=== PATIENT | male | born 1965 | race Caucasian/White ===

== ENCOUNTER → 2024-04-09 10:02 | Outpatient (REF) | payer OTHER, SELFPAY | LOC: RCS 10:02 | PROVIDERS: ATTENDING PHYSICIAN Nurse Practitioner Gerontology; FAMILY PHYSICIAN Internal Medicine | DX: I77.810 Thoracic aortic ectasia (principal) | CPT/HCPCS: 93306 ==

== ENCOUNTER → 2024-04-23 10:34 | Outpatient (REF) | payer OTHER, SELFPAY | LOC: RCS 10:34 | PROVIDERS: ATTENDING PHYSICIAN Nurse Practitioner Gerontology; FAMILY PHYSICIAN Internal Medicine | DX: R07.89 Other chest pain (principal); I77.810 Thoracic aortic ectasia; R06.09 Other forms of dyspnea; R01.1 Cardiac murmur, unspecified | CPT/HCPCS: 93017 ==

== ENCOUNTER 2024-12-08 17:11 | Inpatient (IN) | payer OTHER, SELFPAY ==
[2024-12-08 15:54] VITALS: BP 103/70
[2024-12-08 16:08] VITALS: BP 121/72
[2024-12-08 16:14] VITALS: BMI 28.3
[2024-12-08 16:17] LABS: % Basophils 0.3 % (0-2); % Eosinophils 0.1 % (0-6); % Immature Granulocytes 0.5 % (0-0.5); % Lymphocytes 8.8 % (20.5-51.1); % Monocytes 6.2 % (1.7-9.3); % Neutrophils 84.1 % (42.2-75.2); Absolute Basophils 0.1 10^3/uL (0-0.2); Absolute Immature Granulocytes 0.1 10^3/uL (0-0.05); Absolute Lymphocytes 1.4 10^3/uL (1.2-3.4); Hematocrit 44.7 % (39.0-52.0); Mean Corp Hgb Conc. 35.8 g/dL (33.0-37.0); Mean Corpuscular Hgb 30.9 pg (27.0-31.0); Mean Corpuscular Volume 86.5 fL (80.0-94.0); Nucleated Red Blood Cells % 0 % (-); Platelet Count 186 10^3/uL (130-400); Red Blood Cell Count 5.17 10^6/uL (4.70-6.10); Red Cell Dist. Width 12.4 % (11.5-14.5); White Blood Cell Count 15.4 10^3/uL (4.8-10.8)
[2024-12-08 16:19] LABS: Urine Albumin 3+ (Neg - Trace); Urine Bilirubin Negative (Negative); Urine Character Clear (Clear); Urine Color Yellow; Urine Glucose Negative (Negative); Urine Ketone Negative (Negative); Urine Leukocyte 3+ (Negative); Urine Nitrite Negative (Negative); Urine Occult Blood 4+ (Negative); Urine Specific Gravity 1.015 (<1.030); Urine Urobilinogen Negative (Neg - 1+)
--- NOTE | 2024-12-08 16:21 | ED.GENMED ---
History of Present Illness
General
Chief Complaint: Fever
Source: patient
Time Seen by Provider: 12/08/24 16:08
History of Present Illness
History of Present Illness:
Note:
CHIEF COMPLAINT(S)
Fever and dysuria.
HISTORY OF PRESENT ILLNESS
The patient is a 59-year-old male with a history of elevated cholesterol who presents with fever and urinary symptoms. He reports the onset of symptoms beginning yesterday, including fever, pain during urination, and urgency with small volume voids.
He describes needing to change his underwear frequently due to difficulty getting to the bathroom in time. He has no history of urinary tract infections as an adult. The patient denies testicular pain, urethral discharge, or any recent vomiting but
reports nausea. He has had a recent sexual encounter six days ago with a male partner, involving unprotected anal sex, and denies any concern for sexually transmitted infections. Viral loads are undetectable as he is compliant with his medication
regimen. He has some back pain, for which he has taken Vicodin, last taken two to three hours prior to this visit.
CHRONIC MEDICAL CONDITIONS SIGNIFICANTLY AFFECTING CARE
Hyperlipidemia managed with medication. HIV with undetectable viral load due to compliance with antiretroviral therapy.
SOCIAL HISTORY
The patient reports no current use of tobacco or alcohol, having ceased alcohol consumption 12 years ago.
REVIEW OF SYSTEMS
- Constitutional: Fever present.
- Genitourinary: Dysuria, urgency, increased frequency. No testicular pain or urethral discharge.
- Gastrointestinal: Nausea, no vomiting reported.
- Others: Back pain noted.
Past History
Past History
ED Past Medical History: HTN, Hypercholesterolemia, Other (HIV) and Other (Chronic low back pain)
ED Past Surgical History: Orthopedic
Social History
Tobacco: Former smoker
Alcohol: Former
Drug: None
Personal: Single
Living: alone
Employment: Employed
Review of Systems
Review of Systems
All Other Systems: ROS reviewed and negative except as documented in HPI and ROS
Phy Exam
Physical Exam
Physical Exam:
GENERAL: Alert , in no apparent distress
EYE: clear conjunctiva b/l
HEAD: NCAT
ENT: o/p clr, mmm.
CARDIAC: tachycardic rate, normal rhythm.
LUNGS: Clear breath sounds bilaterally, no acute respiratory distress, no wheezes/rales/rhonchi
ABDOMEN: Soft, without focal tenderness, no r/g, no cvat, negative Vo sign, no tenderness at McBurney's point
RECTAL EXAM: Deferred as patient just had this done by his primary care provider
NEUROLOGICAL: Alert and oriented
SKIN: Warm and dry, skin intact.
MUSCULOSKELETAL: well perfused.
PSYCH: Normal and appropriate interaction.
Scores
Heart Failure Risk
Heart Failure Risk Score: Not Applicable
Heart Score for Chest Pain Patients
STEMI patient?: Not applicable
Withdrawal Assessment of Alcohol
Withdrawal Assessment Completed?: Not applicable
Sepsis
Sepsis Screening
Sepsis Assessment: Sepsis
Sepsis Screen
Sepsis Screen: Sepsis
Date: 12/08/24
Time: 17:04
Course
Orders/Labs/Results
Orders:
Orders
12/08/24 16:05
Complete Blood Count/With Diff Urgent
Comprehensive Metabolic Panel Urgent
Lactic Acid Urgent
Urinalysis Reflex To Culture Urgent
Date Specimen was Collected: 12/08/24
Time Specimen was Collected: 16:01
Urine Microscopic Reflex Cult Urgent
Urine Culture Urgent
TALIB Source: U
Specimen Description:
Date Specimen was Collected: 12/08/24
Time Specimen was Collected: 16:01
12/08/24 16:08
Bladder Scan- Treatment ONCE
Acetaminophen [Tylenol] 650 mg PO NOW STA
12/08/24 16:15
Blood Culture Q30M
TALIB Source: Blood/Venous
Specimen Description:
12/08/24 16:17
0.9% Sodium Chloride 1000 ml [Nss] 2,800 ml IV NOW STA
Ondansetron Injectable [Zofran] 4 mg IV NOW STA
12/08/24 16:18
Electrocardiogram (*1) Urgent
Reason for Study: Tachycardia
EKG- Treatment ONCE
Cefepime HCl [Maxipime] 2,000 mg IV NOW STA
12/08/24 16:24
Add On- LAB Urgent
Tests Added?: gonorrhea/chalmydia PCR Urine
12/08/24 16:26
Sterile Water [Sterile Water For Injection] 10 ml .ROUTE .[facility]
12/08/24 16:45
Blood Culture Q30M
TALIB Source: Blood/Venous
Specimen Description:
12/08/24 16:56
Bladder Scan As Directed
Follow Bladder Retention/Intermittent Cath Algorithm?: Yes
PRN if no void in __ hours: 6
Frequency: Per Retention Algorithm
If Bladder Scan Result >: 400
then:: Straight cath
Straight Cath As Directed
Frequency: Per Retention Algorithm
Additional Instructions: straight cath as needed per acute urinary retention algorithm for 24 hrs
Additional Instructions: for bladder scan greater than 400 mL
Abnormal Lab Results
12/08/24
16:05
WBC 15.4 H 10^3/uL
(4.8-10.8)
Abs Immat Gran (auto) 0.1 H 10^3/uL
(0-0.05)
Absolute Neuts (auto) 13.0 H 10^3/uL
(1.4-6.5)
Absolute Monos (auto) 1.0 H 10^3/uL
(0.1-0.6)
Neutrophils % 84.1 H %
(42.2-75.2)
Lymphocytes % 8.8 L %
(20.5-51.1)
Glucose 134 H mg/dl
(70-99)
Ur Occult Blood Reflex 4+ A
(Negative)
Leukocyte Esterase Rfl 3+ A
(Negative)
Urine RBC 11-15 A /HPF
(0-2)
Urine WBC (Reflex) 30-40 A /HPF
(0-5)
Urine Bacteria (Reflex) Moderate A
(Negative)
Urine Albumin (Reflex) 3+ A
(Neg - Trace)
12/08/24 16:05
12/08/24 16:05
Vital Signs
Initial and Last Documented VS:
Initial Vital Signs
Temp Pulse Resp BP Pulse Ox
103.0 F H 158 16 103/70 95
12/08/24 15:54 12/08/24 15:54 12/08/24 15:54 12/08/24 15:54 12/08/24 15:54
Last Documented Vital Signs
Temp Pulse Resp BP Pulse Ox
103.0 F H 151 21 121/72 94
12/08/24 15:54 12/08/24 16:09 12/08/24 16:09 12/08/24 16:08 12/08/24 16:15
MDM/Problems Addressed
Differential Diagnosis Includes:
The Differential Diagnosis includes, in no particular order, and is not limited to:
1. Urinary Tract Infection
2. Acute Prostatitis
3. Pyelonephritis
4. Urolithiasis
5. Sexually Transmitted Infection
6. Bladder Infection
7. Epididymitis
8. Viral Infection
9. Fungal Infection
10. Non-infectious causes of dysuria, such as urinary tract obstruction.
MDM/Problems Addressed:
- Administer intravenous fluids.
- Administer Tylenol to reduce fever.
- Administer Zofran for nausea control.
- Collect a urine sample for further analysis.
- Plan for hospital admission for intravenous antibiotic therapy considering complicated urinary tract infection in a male patient.
Chronic conditions affecting care: Immunosuppressed (HIV)
*Pulse Oximetry
Patient hypoxic: no
*Project Lead Interpretation
Rate: tachycardiac
Rhythm: sinus
*Critical Care Note
Total Time (30-74mins, 75-104mins- exclusive of procedures): Not Applicable
Data Reviewed
Review of Other/Old Records Reveals: Labs
Patient Management
Discussion with other providers: Hospitalist
Escalation/DeEscalation of care consider admission/obs:
SUMMARY OF ENCOUNTER
The patient, a 59-year-old male with a background of hyperlipidemia and controlled HIV, presented with fever and symptoms of dysuria and urinary urgency. His symptoms began a day prior and included fever, pain during urination, and frequent trips to
the bathroom with small volume voids. He experienced nausea but denied any vomiting. He had a recent sexual encounter but reported no concern for sexually transmitted infections. Upon examination, the patient demonstrated a significant fever and
tachycardia.
Laboratory findings revealed significant leukocytosis and urine analysis showed three plus leukocytes and 30 to 40 WBCs. These findings, along with the patients symptoms, fever, and history, led to a suspicion of a complicated urinary tract
infection or prostatitis, exacerbated by his immunocompromised state despite controlled HIV.
Based on these findings and the risk factors, the decision was made to manage the patient with hospitalization for IV antibiotics, fluids, and continued monitoring.
MANAGEMENT OF THE PATIENTS CARE WAS DISCUSSED WITH
The hospitalist team, who accepted the patient for further treatment and evaluation.
MEDICAL DECISION MAKING
Number and Complexity of Problems Addressed:
The patient presented with fever and dysuria amidst an HIV-controlled condition, raising concern for a complicated UTI or prostatitis. The complexity of his state considering his immunocompromised background necessitated careful evaluation and
management approaches.
Data:
Laboratory test results including leukocytosis and urine analysis were pivotal in deciding the admission for IV antibiotics due to the suspected infection.
Risk:
The patients immunocompromised status due to HIV, though controlled, increased the risk for complications from the suspected UTI or prostatitis, requiring hospital admission for appropriate care.
ED Attending Note
-
Portions of this chart may have been created with voice recognition software.� Occasional wrong word or��sound alike� substitutions may have occurred due to the inherent limitations of voice recognition software.
Discharge Plan
Departure
Patient Disposition: Admit
Date of Disposition: 12/08/24
Time of Disposition: 16:44
Presentation/result/management discussed w/ accepting MD/DO: Hospitalist
Discharge Problem:
Urinary tract infection
Prescriptions:
No Action
atorvastatin [Lipitor] 20 mg Tablet
20 mg PO DAILY
tadalafil 20 mg Tablet
20 mg PO DAILYPRN PRN (Reason: ed)
Ozempic 2 mg/dose (8 mg/3 mL) Pen Injector
2 mg SC QWEEK
Interventions
Interventions:
*Risk Screen - Suicide Last Done: 12/08/24 16:15
*General Assessment Last Done: 12/08/24 16:15
*Neglect/Abuse Screening Last Done: 12/08/24 16:15
*ED- Fall Risk Assessment Last Done: 12/08/24 16:15
*ED COVID-19 Vaccine History Last Done: 12/08/24 16:15
ED- Neurological Assessment Last Done: 12/08/24 16:15
ED-Skin Assessment Last Done: 12/08/24 16:15
Discharge Date and Time
Print Language: PERSIAN
[2024-12-08] MEDS: NSS 2800 ML IV (16:24)
[2024-12-08 16:25] LABS: Urine Mucus Few; Urine Squamous Cell 0-2 /LPF (Few)
[2024-12-08 16:26] LABS: Urine Bacteria Moderate (Negative); Urine White Cell 30-40 /HPF (0-5)
[2024-12-08] MEDS: ZOFRAN 4 MG IV (16:28)
[2024-12-08] MEDS: TYLENOL 650 MG PO (16:28)
[2024-12-08] MEDS: MAXIPIME 2000 MG IV (16:29)
[2024-12-08 16:42] LABS: ALT (SGPT) 20 U/L (0-50); AST (SGOT) 22 U/L (17-59); Albumin 4.4 g/dl (3.5-5.0); Alkaline Phosphatase 53 U/L (38-126); Blood Urea Nitrogen 17 mg/dl (9-20); Calcium 9.3 mg/dl (8.4-10.2); Carbon Dioxide 27 mmol/L (22-30); Chloride 103 mmol/L (98-107); Estimated Creatinine Clearance 77 ml/min; Glucose 134 mg/dl (70-99); Potassium 3.9 mmol/L (3.5-5.1); Sodium 139 mmol/L (135-145); Total Bilirubin 1.1 mg/dl (0.2-1.3); eGFR > 60.00
--- NOTE | 2024-12-08 16:45 | HPS.HSE ---
Family Physician
-
Family Physician:
Chief Complaint
-
Urinary frequency, urgency
History of Present Illness
59-year-old male with a history of hyperlipidemia, prediabetes, HIV presented to us with fever of 103, urinary frequency urgency and painful urination since yesterday.patient complained if decreased urine output. Patient complained of headache and
dizzy. Patient was taking Tylenol and aspirin at home. The patient denies testicular pain, urethral discharge, or any recent vomiting but reports nausea.He has some back pain. Patient denied cough, congestion, chest pain, short of breath. Patient
denied abdominal pain, diarrhea or constipation.
UA positive. Initiated on IV cefepime. Admitting for further management
Medical History
Past Medical History
Past Medical History: Reports Other
Additional Past Medical History:
Aortic root enlargement, HIV, hyperlipidemia, ADHD
Past Surgical History: Reports Other
Additional Past Surgical History:
Spinal fusion
Eyelid surgery
Social History
Tobacco: Former Smoker
Alcohol: Former
Drug: Former User
Living: Alone
Employment: Employed
Family History
Family History: Not pertinent
Allergies / Home Medications
Allergies reflects when Allergies were last updated in [facility].
Home Medications with original date entered in [facility]
Allergy/Medication List:
Allergies
Allergy/AdvReac Type Severity Reaction Status Date / Time
cat dander Allergy Anaphylaxis Verified 12/08/24 15:57
Home Medications
atorvastatin 20 mg tablet (Lipitor) 20 mg PO DAILY 12/08/24
semaglutide 2 mg/dose (8 mg/3 mL) subcutaneous pen injector (Ozempic) 2 mg SC QWEEK 12/08/24
tadalafil 20 mg tablet 20 mg PO DAILYPRN PRN ed 12/08/24
Review of Systems
-
Constitutional: Reports Fever and Fatigue
EENT: Reports No Symptoms
Respiratory: Reports No Symptoms
Cardiac: Reports No Symptoms
Abdomen/GI: Reports No Symptoms
: Reports Dysuria, Frequency, Flank Pain, Difficulty Voiding and Urgency
Musculoskeletal: Reports No Symptoms
Skin: Reports No Symptoms
Neurological: Reports No Symptoms
Endocrine: Reports No Symptoms
Hematologic/Lymphatic: Reports No Symptoms
Psych: Reports No Symptoms
Physical Exam
Vital Signs
Vital Signs
Temp Pulse Resp BP Pulse Ox
103.0 F H 151 21 121/72 94
12/08/24 15:54 12/08/24 16:09 12/08/24 16:09 12/08/24 16:08 12/08/24 16:15
Physical Exam
General: Well Developed, Well Nourished and No Apparent Distress
HEENT: NormoCephalic, Moist mucous membranes and Atraumatic
Respiratory: Clear
Cardiac: S1/S2 and Regular Rhythm; No Murmur or Rub
GI: Soft, Non Tender, Non Distended and Normal Bowel Sounds; No Organomegaly
Rectal: Deferred by Provider
Musculoskeletal: No Clubbing, No Cyanosis and No Edema
Skin: No Rash
Neuro: AO x 3 and Nonfocal/grossly intact
Psych: Calm
Laboratory Results
-
12/08/24 16:05
12/08/24 16:05
Laboratory Results
Lactic Acid 1.0 mmol/L (0.7-2.0) 12/08/24 16:05
Total Bilirubin 1.1 mg/dl (0.2-1.3) 12/08/24 16:05
AST 22 U/L (17-59) 12/08/24 16:05
ALT 20 U/L (0-50) 12/08/24 16:05
Alkaline Phosphatase 53 U/L (38-126) 12/08/24 16:05
Data Reviewed
-
Lab Data: Labs Reviewed by me
Impression/Plan
-
# Sepsis secondary to prostatitis
# Complicated urinary tract infection
- IV Maxipime continued
- Tylenol as needed for fever or pain
- Sepsis as evident by WBCs 15.4, temp 103.0, tachycardia
# Hyperlipidemia
- Statin continued
# Prediabetes
- Hold Ozempic
- CHO diet
- Sliding scale
# History of HIV
-on cabenuva
#ADHD
-methylphenidate continued
# DVT prophylaxis
- Lovenox
# CODE STATUS
- Full code
[2024-12-08 17:00] VITALS: BP 121/73
--- NOTE | 2024-12-08 17:13 | W.PN.UPDATE ---
Update Note
Progress Note Update
This is an addendum to H&P written by AIRPLANE DISPATCH CLERK Padmini Vázquez
I saw and examined the patient.
The AIRPLANE DISPATCH CLERK's note was reviewed and I agree with the note.
Comment:
Mr. Bert Conti is a 59 yo man with hx HIV on ART, HLD, GERD presents to the ER with fevers, back pain and dysuria.
Triage VS: T 103, P 158, RR 16, BP 103/70, SpO2 95%
On exam patient is awake, alert, in no distress; Chest clear; CV: S1, S2, tachycardia; some right lower back tenderness; no LE swelling
LABS: WBC 15.4, Hg 16, PLT 186, Na 139, K+ 3.9, Cr 1.1, Glucose 134, lactate 1.0
UA with 30-40 WBC
MAR: sepsis dose fluid, IV Cefepime
Sepsis 2/2 UTI
-with report of low back/flank pain will obtain CT with/without contrast
-continue IV Cefepime
-IVF
-follow up blood and urine cultures
HIV
-continue ART
HLD
-RUBBER STAMP ASSEMBLER Statin
DVT PPx Lovenox
FULL CODE
Remainder of plan per AIRPLANE DISPATCH CLERK note
[2024-12-08 20:03] VITALS: BP 117/80; BMI 28.2
[2024-12-08] MEDS: NSS 1000 IV (20:22)
[2024-12-08] MEDS: NORCO 7.5/325 1.5 TABLET PO (20:23)
[2024-12-08] MEDS: LOVENOX 40 MG SC (20:23)
[2024-12-08] MEDS: RITALIN 20 MG PO (20:24)
[2024-12-08 21:41] LABS: Glucose - Point of Care 143 mg/dl (70-99)
[2024-12-08 23:06] VITALS: BP 116/68
[2024-12-09] MEDS: MAXIPIME 2000 MG IV ×4 (00:16→23:47)
[2024-12-09] MEDS: STERILE WATER FOR INJECTION 10 ML IV ×3 (00:17→16:59)
[2024-12-09 03:13] VITALS: BP 126/82
[2024-12-09 06:00] VITALS: BMI 28.1
[2024-12-09 06:34] LABS: Hemoglobin 14.4 g/dL (13.0-18.0); Mean Corpuscular Hgb 31.4 pg (27.0-31.0); Mean Corpuscular Volume 87.3 fL (80.0-94.0); Mean Platelet Volume 9.2 fL (7.4-10.4); Platelet Count 154 10^3/uL (130-400); Red Blood Cell Count 4.58 10^6/uL (4.70-6.10); Red Cell Dist. Width 12.7 % (11.5-14.5)
[2024-12-09 06:58] LABS: Blood Urea Nitrogen 12 mg/dl (9-20); Calcium 8.3 mg/dl (8.4-10.2); Carbon Dioxide 23 mmol/L (22-30); Chloride 110 mmol/L (98-107); Estimated Creatinine Clearance 95 ml/min; Glucose 118 mg/dl (70-99); Sodium 139 mmol/L (135-145); eGFR > 60.00
[2024-12-09] MEDS: NSS 1000 IV (07:01)
[2024-12-09 07:14] LABS: Glucose - Point of Care 105 mg/dl (70-99)
[2024-12-09 07:53] VITALS: BP 125/79
[2024-12-09] MEDS: PROTONIX 40 MG PO (08:29)
[2024-12-09] MEDS: NORCO 7.5/325 1.5 TABLET PO ×2 (08:29→20:17)
[2024-12-09] MEDS: VIBRAMYCIN 20 MG PO (08:29)
[2024-12-09] MEDS: RITALIN 20 MG PO (08:29)
[2024-12-09] MEDS: LIPITOR 20 MG PO (08:29)
--- NOTE | 2024-12-09 08:47 | W.PN.HOSP.TC ---
Today's Communication/Plan
-
see plan
Assessment / Plan
Assessment / Plan
Mr. Bert Conti is a 59 yo man with hx HIV on ART, HLD, GERD presents to the ER with fevers, back pain and dysuria, admitted for sepsis 2/[address] A/P
IMPRESSION:
1. No significant abnormality identified in the abdomen or pelvis, as described above.
MAR: sepsis dose fluid, IV Cefepime
Sepsis 2/2 UTI/Prostatitis - patient had prostate exam in clinic; reported significant tenderness
-CT A/P without e/o nephrolithiasis or pyelo
-continue IV Cefepime
-IVF
-follow up blood and urine cultures
HIV
-continue ART
HLD
-MOUNTAIN SERVICES MANAGER Statin
DVT PPx Lovenox
FULL CODE
Anticipated Discharge: 24 - 48 hours
Subjective/Interval History
-
Date of Service: December 09, 2024
feeling better today
some irritation with urination
Objective Data
-
Labs:
Laboratory Results
12/09/24
06:06
WBC 12.0 H
Hgb 14.4
Hct 40.0
Plt Count 154
Sodium 139
Potassium 4.0
Chloride 110 H
Carbon Dioxide 23
BUN 12
Creatinine 0.9
Glucose 118 H
Calcium 8.3 L
Vital Signs:
Vital Signs
Temp Pulse Resp BP Pulse Ox
98.9 F 108 14 125/79 95
12/09/24 07:53 12/09/24 07:53 12/09/24 07:53 12/09/24 07:53 12/09/24 07:53
I&O
12/08/24 12/09/24 12/10/24
06:59 06:59 06:59
Intake Total 480 / 480
Output Total 900 / 900
Balance -420 / -420
Review of Systems
-
History Source: Patient
All other systems: Reviewed and negative
Physical Exam
-
General: No Apparent Distress
HEENT: PERRLA
Respiratory: Clear to Auscultation; Negative Wheezes
Cardiac: Regular Rhythm and S1/S2
GI: Soft and Nontender
Musculoskeletal: No Edema
Skin: Warm and Dry; Negative Rash
Neuro: Awake, Alert, Oriented and AO x 3
Psych: Calm
Data Reviewed
-
Diagnostic Radiology: Report Reviewed by me
Labs: Labs Reviewed by me
[2024-12-09 09:00] LABS: Glycohemoglobin (HgbA1c) 5.8 % (4.0-5.6)
[2024-12-09 11:24] VITALS: BP 141/90
--- NOTE | 2024-12-09 11:38 | CM ---
CM following re: discharge planning.
Reviewed pt's chart, met with pt.
Pt is a 59 year old male, admitted with primary dx of Sepsis.
Pt reports he lives alone in a condo, no steps to enter, has a and she lives in a separate condo, no children. Pt described himself as independent in all areas [employer], drives, works.
PCP: Rolando Lucero
[facility]
D/C plan: home with anticipated no needs.
CM will follow with discharge plan updates as hospitalization progresses
[2024-12-09] MEDS: TUMS CHEWABLE TABLET 400 MG PO (12:00)
[2024-12-09 15:38] VITALS: BP 131/84
[2024-12-09] MEDS: NSS IV (16:17)
[2024-12-09] MEDS: LOVENOX SC ×2 (16:59→17:40)
[2024-12-09] MEDS: RITALIN PO (17:40)
[2024-12-09] MEDS: COLACE 100 MG PO (20:07)
[2024-12-09 20:10] VITALS: BP 137/86
[2024-12-09] MEDS: TYLENOL 500 MG PO (21:08)
[2024-12-09 23:06] VITALS: BP 140/116
[2024-12-10] MEDS: STERILE WATER FOR INJECTION 10 ML IV ×2 (00:12→08:36)
[2024-12-10 07:43] VITALS: BP 138/85
[2024-12-10 08:09] LABS: Hematocrit 40.7 % (39.0-52.0); Hemoglobin 14.3 g/dL (13.0-18.0); Mean Corp Hgb Conc. 35.1 g/dL (33.0-37.0); Mean Corpuscular Hgb 31.2 pg (27.0-31.0); Mean Corpuscular Volume 88.7 fL (80.0-94.0); Mean Platelet Volume 9.4 fL (7.4-10.4); Platelet Count 164 10^3/uL (130-400); Red Blood Cell Count 4.59 10^6/uL (4.70-6.10); Red Cell Dist. Width 12.8 % (11.5-14.5)
[2024-12-10] MEDS: VIBRAMYCIN 20 MG PO (08:34)
[2024-12-10] MEDS: PROTONIX 40 MG PO (08:35)
[2024-12-10] MEDS: COLACE 100 MG PO (08:35)
[2024-12-10] MEDS: NORCO 7.5/325 1.5 TABLET PO (08:35)
[2024-12-10] MEDS: RITALIN 20 MG PO (08:36)
[2024-12-10] MEDS: LIPITOR 20 MG PO (08:36)
[2024-12-10] MEDS: MAXIPIME 2000 MG IV (08:36)
[2024-12-10 09:07] LABS: Blood Urea Nitrogen 10 mg/dl (9-20); Calcium 8.7 mg/dl (8.4-10.2); Carbon Dioxide 26 mmol/L (22-30); Chloride 108 mmol/L (98-107); Estimated Creatinine Clearance 85 ml/min; Glucose 129 mg/dl (70-99); Potassium 4.1 mmol/L (3.5-5.1); Sodium 141 mmol/L (135-145); eGFR > 60.00
--- NOTE | 2024-12-10 09:08 | W.PN.HOSP.TC ---
Today's Communication/Plan
-
OK for DC today
Assessment / Plan
Assessment / Plan
Mr. Bert Conti is a 59 yo man with hx HIV on ART, HLD, GERD presents to the ER with fevers, back pain and dysuria, admitted for sepsis 2/2 UTI/prostatitis.
CT A/P
IMPRESSION:
1. No significant abnormality identified in the abdomen or pelvis, as described above.
Sepsis 2/2 UTI/Prostatitis - patient had prostate exam in clinic; reported significant tenderness
-CT A/P without e/o nephrolithiasis or pyelo
-culture growing E. Coli resistant to Bactrim
-s/p IV Cefepime - transition to Cipro to complete 2 week course
-*patient spiked a fever to 101 yesterday evening. We discussed watching another night in hospital to confirm afebrile x 24 hours versus home today. He is transitioned to Cipro which has excellent bioavailability. Patient would rather go home
today. He states he has support at home. He was given warning signs on when to come back to the OR.
HIV
-continue ART
HLD
-NURSING CLINICAL DIRECTOR Statin
DVT PPx Lovenox
FULL CODE
Anticipated Discharge: Today
Subjective/Interval History
-
Date of Service: December 10, 2024
feeling well
mild urinary urgency, much improved
denies pain
spiked fever to 101 yesterday evening
Objective Data
-
Labs:
Laboratory Results
12/10/24
06:47
WBC 9.0
Hgb 14.3
Hct 40.7
Plt Count 164
Sodium 141
Potassium 4.1
Chloride 108 H
Carbon Dioxide 26
BUN 10
Creatinine 1.0
Glucose 129 H
Calcium 8.7
Vital Signs:
Vital Signs
Temp Pulse Resp BP Pulse Ox
98.3 F 101 18 138/85 96
12/10/24 07:43 12/10/24 07:43 12/10/24 07:43 12/10/24 07:43 12/10/24 07:43
I&O
12/09/24 12/10/24 12/11/24
06:59 06:59 06:59
Intake Total 480 / 480 2440 / 2440
Output Total 900 / 900 1959 / 1959
Balance -420 / -420 480 / 480
Review of Systems
-
History Source: Patient
All other systems: Reviewed and negative
Physical Exam
-
General: No Apparent Distress
HEENT: PERRLA
Respiratory: Clear to Auscultation; Negative Wheezes
Cardiac: Regular Rhythm and S1/S2
GI: Soft and Nontender
Musculoskeletal: No Edema
Skin: Warm and Dry; Negative Rash
Neuro: Awake, Alert, Oriented and AO x 3
Psych: Calm
Data Reviewed
-
Diagnostic Radiology: Report Reviewed by me
Labs: Labs Reviewed by me
--- NOTE | 2024-12-10 09:43 | W.DS.TRANS ---
DC Summary - Field Placement Director
-
Discharge Instructions:
Discharge Diagnosis/Procedures Acute Prostatitis
Diet Regular
Activity As tolerated
Driving Restrictions As prior to admission
Bathing Restrictions None
Instructions:
Stand-Alone Forms:
Changes to Home Medications: Yes
Discharge Medications:
DC Medications w/original date entered in [facility]
ascorbic acid (vitamin C) 500 mg tablet (Vitamin C) 500 mg PO DAILY 12/08/24
atorvastatin 20 mg tablet (Lipitor) 20 mg PO DAILY 12/08/24
cabotegravir ER 600 mg/3 mL-rilpivirine ER 900 mg/3mL IM suspension,ER (Cabenuva) 0 ml IM .COMPLEX 12/08/24
cholecalciferol (vitamin D3) 50 mcg (2,000 unit) capsule (Vitamin D3) 50 mcg PO DAILY 12/08/24
coQ10 (ubiquinol) 200 mg capsule 200 mg PO DAILY 12/08/24
doxycycline hyclate 20 mg tablet 20 mg PO DAILY 12/08/24
esomeprazole magnesium 20 mg capsule,delayed release (Nexium) 20 mg PO DAILY 12/08/24
fluticasone propionate 50 mcg/actuation nasal spray,suspension 1 spray intranasal DAILY 12/08/24
hydrocodone 7.5 mg-acetaminophen 300 mg tablet 1.5 tab PO BID 12/08/24
magnesium oxide 400 mg PO HS 12/08/24
methylphenidate HCl 20 mg tablet 20 mg PO BID 12/08/24
semaglutide 2 mg/dose (8 mg/3 mL) subcutaneous pen injector (Ozempic) 2 mg SC ORONA 12/08/24
tadalafil 20 mg tablet 20 mg PO DAILYPRN PRN ed 12/08/24
testosterone 3 pump topical DAILY 12/08/24
vitamin E 100 unit tablet 180 unit PO DAILY 12/08/24
zinc sulfate 50 mg zinc (220 mg) tablet 50 mg PO DAILY 12/08/24
ciprofloxacin HCl 500 mg tablet 500 mg PO Q12 #24 tabs 12/10/24
Home Medication Changes
Addition of Ciprofloxacin
Pending Results: No
[2024-12-10 11:00] VITALS: BP 148/97
--- NOTE | 2024-12-10 13:08 | W.DCSUMMARY ---
Discharge Summary
Discharge Data
Date of Admission: 12/08/24
Date of Discharge: 12/10/24
-
Pending Results: No
Hospital Course
Discharging Physician : Dr. Eulalia Silva
Disposition : Home
Primary care physician : Dr. Rolando Lucero
Principal Discharge diagnosis : Acute Prostatitis
Hospital Course :
Mr. Bert Conti is a 59 yo man with hx HIV on ART, HLD, GERD sent to ER from clinic with report of fevers, difficulty with urination and dysuria. He had a positive ESPERANZA in clinic.
Triage vitals significant for T 103, blood pressure stable. Labs with WBC 15.4. UA with 30-[address] A/P obtained without e/o pyelo or renal calculi. He was started on IV Cefepime and admitted. Culture returned positive for E. Coli, resistant
to Bactrim and sensitive to Ciprofloxacin. On day of discharge patient's symptoms largely resolved and his leukocytosis resolved. He spiked a fever to 101 evening prior to discharge. We discussed option of another night of observation in hospital
but he wished to go home. He is given a 2 week course of Cipro for acute prostatitis and will follow up closely with his outpatient provider.
Time spent on discharge was 35 minutes.
Important imaging findings :
CT A/P 12/08/24
IMPRESSION:
1. No significant abnormality identified in the abdomen or pelvis, as described above.
Procedure findings :
Discharge Plan
-
Patient Disposition: Home (Routine Discharge)
Discharge Diagnosis/Procedures: Acute Prostatitis
Diet: Regular
Activity: As tolerated
Driving Restrictions: As prior to admission
Bathing Restrictions: None
Referrals:
Rolando Lucero, DO [Family Provider, General] - in less than 1 week
Additional Discharge Medication Instructions: You are given 12 more days of Ciprofloxacin. Please follow up with your PCP within that time frame to confirm symptoms resolved and you do not need a longer course.
Prescriptions:
New
ciprofloxacin HCl 500 mg Tablet
500 mg PO Q12 Qty: 24 0RF
Continued
atorvastatin [Lipitor] 20 mg Tablet
20 mg PO DAILY
tadalafil 20 mg Tablet
20 mg PO DAILYPRN PRN (Reason: ed)
Ozempic 2 mg/dose (8 mg/3 mL) Pen Injector
2 mg SC ORONA
methylphenidate HCl 20 mg tablet
20 mg PO BID
zinc sulfate 50 mg zinc (220 mg) Tablet
50 mg PO DAILY
ascorbic acid (vitamin C) [Vitamin C] 500 mg Tablet
500 mg PO DAILY
doxycycline hyclate 20 mg Tablet
20 mg PO DAILY
fluticasone propionate 50 mcg/actuation [place],Suspension
1 spray INTRANASAL DAILY
esomeprazole magnesium [Nexium] 20 mg Capsule,Delayed Release(Dr/Ec)
20 mg PO DAILY
vitamin E 100 unit Tablet
180 unit PO DAILY
hydrocodone-acetaminophen 7.5-300 mg Tablet
1.5 tab PO BID
cholecalciferol (vitamin D3) [Vitamin D3] 50 mcg (2,000 unit) Capsule
50 mcg PO DAILY
coQ10 (ubiquinol) 200 mg Capsule
200 mg PO DAILY
testosterone 20.25 mg/1.25 gram (1.62 %) gel in metered-dose pump
3 pump topical DAILY
magnesium oxide 400 mg magnesium Tablet
400 mg PO HS
Cabenuva 600 mg/3 mL- 900 mg/3 mL Suspension,Extended Release
0 ml IM .COMPLEX
Rx Instructions:
CABOTEGRAVIR: Inject 3 mL (600 mg) intramuscularly every 2 months; RILPIVIRINE: Inject 3 mL (900 mg) intramuscularly every 2 months
Discharge Orders:
Discharge Patient (As Directed); Ordered 12/10/24
Ordered By: Eulalia Silva
Discharge Date and Time
Discharge Date/Time: 12/10/24 11:21
Print Language: YORUBA
== END 2024-12-10 11:21 | disposition home or self-care (01) | DRG 872 ==
LOC: 2 NORTH 17:11
PROVIDERS: Registered Nurse; ADMITTING PHYSICIAN Student in an Organized Health Care Education/Training Program; EMERGENCY PHYSICIAN Emergency Medicine; FAMILY PHYSICIAN Internal Medicine
DX: A41.51 Sepsis due to Escherichia coli [E. coli] (principal); N39.0 Urinary tract infection, site not specified; N41.0 Acute prostatitis; Z16.29 Resistance to other single specified antibiotic; E78.00 Pure hypercholesterolemia, unspecified; I10 Essential (primary) hypertension; K21.9 Gastro-esophageal reflux disease without esophagitis; R73.03 Prediabetes; F90.9 Attention-deficit hyperactivity disorder, unspecified type; F19.11 Other psychoactive substance abuse, in remission; G89.29 Other chronic pain; M54.50 Low back pain, unspecified; Z21 Asymptomatic human immunodeficiency virus [HIV] infection status; Z60.2 Problems related to living alone; Z87.891 Personal history of nicotine dependence; Z79.85 Long-term (current) use of injectable non-insulin antidiabetic drugs; Z98.1 Arthrodesis status
CPT/HCPCS: 74178; 80048; 80053; 81003; 81015; 82962; 83036; 83605; 85025; 85027; 87040; 87077; 87086; 87186; 87491; 87591; 93005; 96361; 96374; 96375; 99285; Q9967

== ENCOUNTER → 2025-05-06 09:57 | Outpatient (REF) | payer OTHER, SELFPAY | LOC: RAD 09:57 | PROVIDERS: ATTENDING PHYSICIAN Internal Medicine; REFERRING PHYSICIAN Internal Medicine Pulmonary Disease | DX: E29.1 Testicular hypofunction (principal); Z87.891 Personal history of nicotine dependence; Z12.2 Encounter for screening for malignant neoplasm of respiratory organs | CPT/HCPCS: 71271 ==